=== PATIENT | female | born 1965 | race Native Hawaiian/Other Pacific Islander ===

== ENCOUNTER 2022-07-07 14:58 | Emergency (ER) | payer OTHER ==
[~2022-07-07] VITALS: Ht 154.9 cm; Wt 149.2 kg
[2022-07-07 15:03] VITALS: BP 123/73
[2022-07-07] MEDS ORDERED: IBUP-2213 PO (15:31)
[2022-07-07] MEDS ORDERED: CEPH-588 PO (15:31)
== END 2022-07-07 15:56 | disposition home or self-care (01) ==
LOC: MED 14:58
DX: L03.115 Cellulitis of right lower limb (principal); E11.9 Type 2 diabetes mellitus without complications; E03.9 Hypothyroidism, unspecified; Z79.899 Other long term (current) drug therapy; Z79.2 Long term (current) use of antibiotics; Z79.1 Long term (current) use of non-steroidal anti-inflammatories (NSAID)
CPT/HCPCS: 99283

== ENCOUNTER 2022-12-14 16:23 | Emergency (ER) | payer OTHER ==
[~2022-12-14] VITALS: Ht 154.9 cm; Wt 139.7 kg
[~2022-12-14 16:23] MED LIST: CEPH-588 PO; IBUP-2213 PO
[2022-12-14 16:48] VITALS: BP 131/74
[2022-12-14] MEDS ORDERED: ALBU0.0912 INH (19:49)
[2022-12-14] MEDS ORDERED: BENZ150C2 PO (19:49)
[2022-12-14 19:58] VITALS: BP 128/74
--- NOTE | 2022-12-14 19:58 | NUR ---
Patient discharged with v/s stable. Written and verbal after care instructions given and explained. Patient alert, oriented and verbalized understanding of instructions. Ambulatory with steady gait. All questions addressed prior to discharge. ID band removed. Patient advised to follow up with PMD. Rx of Albuterol and Benzonatate given. Patient educated on indication of medication including possible reaction and side effects. Opportunity to ask questions provided and answered.
[2022-12-14] MEDS ORDERED: AZIT250T4 PO (21:11)
== END 2022-12-14 19:58 | disposition home or self-care (01) ==
LOC: MED 16:23
DX: J18.9 Pneumonia, unspecified organism (principal); R91.8 Other nonspecific abnormal finding of lung field; E11.9 Type 2 diabetes mellitus without complications; Z86.39 Personal history of other endocrine, nutritional and metabolic disease; Z79.899 Other long term (current) drug therapy; Z79.2 Long term (current) use of antibiotics; Z79.1 Long term (current) use of non-steroidal anti-inflammatories (NSAID)
CPT/HCPCS: 71046; 99283

== ENCOUNTER 2023-01-04 14:36 | Emergency (ER) | payer OTHER ==
[~2023-01-04] VITALS: Ht 157.5 cm; Wt 136.1 kg
[~2023-01-04 14:36] MED LIST changes: +ALBU0.0912 INH; +AZIT250T4 PO; +BENZ150C2 PO
[2023-01-04 14:46] VITALS: BP 123/76
--- NOTE | 2023-01-04 15:09 | NUR ---
PT C/O SORE THROAT X 1 WK. SAFETY MAINTAINED.
--- NOTE | 2023-01-04 15:15 | NUR ---
STREP SWABS COLLECTED.
[2023-01-04] MEDS ORDERED: [UNRECOGNIZED DRUG - CODE] MM (15:25)
[2023-01-04] MEDS ORDERED: BENZ-300 PO (15:25)
[2023-01-04 15:42] VITALS: BP 119/74
--- NOTE | 2023-01-04 15:44 | NUR ---
Patient discharged with v/s stable. Written and verbal after care instructions given and explained. Patient alert, oriented and verbalized understanding of instructions. Ambulatory with steady gait. All questions addressed prior to discharge. ID band removed. Patient advised to follow up with PMD. Rx of CEPACOL,CLOTRIMAZOLE given. Patient educated on indication of medication including possible reaction and side effects. Opportunity to ask questions provided and answered.
== END 2023-01-04 15:42 | disposition home or self-care (01) ==
LOC: MED 14:36
DX: J02.9 Acute pharyngitis, unspecified (principal); E11.9 Type 2 diabetes mellitus without complications; I10 Essential (primary) hypertension; E03.9 Hypothyroidism, unspecified; Z79.899 Other long term (current) drug therapy; Z79.2 Long term (current) use of antibiotics; Z79.1 Long term (current) use of non-steroidal anti-inflammatories (NSAID)
CPT/HCPCS: 87081; 99282

== ENCOUNTER 2023-10-25 11:16 | Emergency (ER) | payer MEDICARE, OTHER ==
[~2023-10-25] VITALS: Ht 154.9 cm; Wt 136.1 kg
[~2023-10-25 11:16] MED LIST changes: +BENZ-300 PO; +[UNRECOGNIZED DRUG - CODE] MM
[2023-10-25 11:23] VITALS: BP 139/77; PULSE 71; RESP 16; TEMP 98.3; O2SAT 98
[2023-10-25] MEDS ORDERED: AMOX1TAB8 PO (12:25)
== END 2023-10-25 12:32 | disposition home or self-care (01) ==
LOC: MED 11:16
DX: H66.92 Otitis media, unspecified, left ear (principal); J02.9 Acute pharyngitis, unspecified; E03.9 Hypothyroidism, unspecified; E11.9 Type 2 diabetes mellitus without complications; I10 Essential (primary) hypertension; Z79.4 Long term (current) use of insulin; Z79.899 Other long term (current) drug therapy
CPT/HCPCS: 99283

== ENCOUNTER 2023-10-27 18:14 | Emergency (ER) | payer MEDICARE ==
[~2023-10-27] VITALS: Ht 154.9 cm; Wt 136.1 kg
[~2023-10-27 18:14] MED LIST changes: +AMOX1TAB8 PO
[2023-10-27 18:26] VITALS: BP 152/77; PULSE 79; RESP 18; TEMP 98.3; O2SAT 98
[2023-10-27] MEDS ORDERED: CIPR7.5D2 OT (22:35)
[2023-10-27] MEDS: ACETAMINOPHEN EXTRA STRENGTH 500 MG TAB PO ONE (23:02)
[2023-10-27] MEDS: KETOROLAC 30 MG/ML VIAL IM ONE (23:03)
== END 2023-10-27 23:04 | disposition home or self-care (01) ==
LOC: MED 18:14
DX: H66.92 Otitis media, unspecified, left ear (principal); H60.92 Unspecified otitis externa, left ear; J02.9 Acute pharyngitis, unspecified; E11.9 Type 2 diabetes mellitus without complications; I10 Essential (primary) hypertension; E03.9 Hypothyroidism, unspecified; Z79.899 Other long term (current) drug therapy
CPT/HCPCS: 96372; 99283; J1885